=== PATIENT | female | born 1985 | race Caucasian/White ===

== ENCOUNTER 2024-11-27 12:39 | Emergency (ER) | payer BC, SELFPAY ==
[2024-11-27 12:40] VITALS: BP 157/91; PULSE 62; TEMP 36.8; O2SAT 100; BMI 21.5
[2024-11-27 12:49] VITALS: O2SAT 100
--- NOTE | 2024-11-27 12:53 | ED_ITS ---
HPI HPI - General Adult General Chief complaint: Neck Pain/Injury Stated complaint: NECK PAIN Time Seen by Provider: 11/27/24 12:43 Mode of arrival: walk-in History of Present Illness HPI narrative: 39-year-old female presents for pain and swelling on the right side of her neck. She has been having this issue on and off for the past year and has seen her family doctor about it. She reports that she had an ultrasound of her thyroid and it was fine. She was told by him to go to the emergency department if it happened again. She has had at this time for 3 days. No difficulty breathing or swelling. She is a smoker and she reports that she has lost a great deal of weight recently. Related Data Allergies Allergy/AdvReac Type Severity Reaction Status Date / Time latex Allergy Severe Rash Verified 11/27/24 12:45 topiramate (From Topamax) Allergy Severe Hallucinati Verified 11/27/24 12:45 ng Opioid HPI Opioid Management Most Recent Opioid Data: Last Pain Scale 6 Today, 12:47 Review of Systems ROS Narrative A ten point review of systems is negative except as noted above. PFSH PFSH Social History Little interest or pleasure in doing things: not at all Feeling down, depressed, or hopeless: not at all Exam Narrative Exam Narrative: Nurses note and vital signs reviewed and patient is not hypoxic. General: The patient appears well and in no apparent distress. Patient is resting comfortably on cart. Skin: Warm, dry, no pallor noted. There is no rash noted. Head: Normocephalic, atraumatic; I do not appreciate any palpable masses in her neck. There is no bruising rash or erythema. Eye: Normal conjunctiva, no drainage Ears, Nose, Mouth, and Throat: oral mucosa is moist. Nares patent. No pharyngeal erythema or exudate. Uvula midline. No swelling Cardiovascular: Regular Rate and Rhythm Respiratory: Patient is in no distress, no accessory muscle use, lungs are clear to auscultation, no wheezing, rales or rhonchi Back: non-tender GI: Soft and nontender Musculoskeletal: The patient has no evidence of calf tenderness, no pitting edema, symmetrical pulses noted bilaterally Neurological: A&O, normal speech Psychiatric: Cooperative Constitutional Vital Signs, click to edit/add: Last Vital Signs Temp 98.2 F 11/27/24 12:40 Pulse 62 11/27/24 12:40 Resp 18 11/27/24 12:40 BP 157/91 H 11/27/24 12:40 Pulse Ox 100 11/27/24 12:49 O2 Del Method Room Air 11/27/24 12:49 Course Vital Signs Vital signs: Vital Signs Temperature 98.2 F 11/27/24 12:40 Pulse Rate 62 11/27/24 12:40 Respiratory Rate 18 11/27/24 12:40 Blood Pressure 157/91 H 11/27/24 12:40 Pulse Oximetry 100 11/27/24 12:40 Oxygen Delivery Method Room Air 11/27/24 12:40 Temperature 98.2 F 11/27/24 12:40 Pulse Rate 62 11/27/24 12:40 Respiratory Rate 18 11/27/24 12:40 Blood Pressure 157/91 H 11/27/24 12:40 Pulse Oximetry 100 11/27/24 12:49 Oxygen Delivery Method Room Air 11/27/24 12:49 Medical Decision Making MDM Narrative Medical decision making narrative: Blood work and CT of neck are negative. She is discharged home and will follow- up with her family doctor. The possibility that this is a lymph node was discussed with the patient. No pathology is noted on the CT scan. Treatment diagnosis and follow-up were discussed with the patient. Differential Diagnosis Differential Diagnosis: Lymphadenopathy, neck mass, carcinoma Lab Data Lab results reviewed: Yes I reviewed the patient's lab results Labs: Lab Results 11/27/24 Range/Units 12:59 WBC 8.9 (4.0-11.0) 10^3/uL RBC 4.86 (4.20-5.40) 10^6/uL Hgb 14.1 (12.0-16.0) g/dL Hct 42.9 (36.0-48.0) % MCV 88.3 (81.0-99.0) fL MCH 29.0 (26.7-34.0) pg MCHC 32.9 (29.9-35.2) g/dL RDW 13.2 (11.0-15.0) % Plt Count 191 (150-450) 10^3/uL MPV 12.9 (9.5-13.5) fL Neut % (Auto) 73.3 (43.0-75.0) % Lymph % (Auto) 19.0 L (20.5-60.0) % [place] % (Auto) 4.9 (1.7-12.0) % Eos % (Auto) 2.0 (0.9-7.0) % Baso % (Auto) 0.6 (0.2-2.0) % Neut # (Auto) 6.5 (1.4-6.5) 10^3/uL Lymph # (Auto) 1.7 (1.2-3.8) 10^3/uL [place] # (Auto) 0.4 (0.3-0.8) 10^3/uL Eos # (Auto) 0.2 (0.0-0.7) 10^3/uL Baso # (Auto) 0.1 (0.0-0.1) 10^3/uL Abs Immat Gran (auto) 0.02 (0.00-0.03) 10^3/uL Imm/Tot Granulo (auto) 0.2 (0.0-0.5) % Sodium 141 (136-145) mmol/L Potassium 3.4 L (3.5-5.1) mmol/L Chloride 103 (98-107) mmol/L Carbon Dioxide 29.8 (21.0-32.0) mmol/L Anion Gap 11.6 BUN 6.0 L (7.0-18.0) mg/dL Creatinine 0.70 (0.55-1.02) mg/dL Est GFR ( Amer) >60 (>=60 mL/min/1.73m^2) Est GFR (Non-Af Amer) >60 (>=60 mL/min/1.73m^2) BUN/Creatinine Ratio 8.6 Glucose 112 H (74-106) mg/dL Calcium 9.0 (8.5-10.1) mg/dL Imaging Data CT neck: Radiologist's impression: No acute neck pathology Discharge Plan Discharge Chief Complaint: Neck Pain/Injury Clinical Impression: Neck pain Patient Disposition: Home, Self-Care Time of Disposition Decision: 15:05 Condition: Good Mode of Transportation: Private Vehicle Print Language: Filipino Instructions: Acute Neck Pain (ED) Referrals: DHARMESH FLOREZ [Primary Care Provider, Family Practice] - 1 week
[2024-11-27 13:07] LABS: Basophils Absolute Auto 0.1 10^3/uL (0.0-0.1); Basophils Percent Auto 0.6 % (0.2-2.0); Eosinophils Absolute Auto 0.2 10^3/uL (0.0-0.7); Hematocrit 42.9 % (36.0-48.0); Hemoglobin 14.1 g/dL (12.0-16.0); Immature Granulocytes Abs Auto 0.02 10^3/uL (0.00-0.03); Immature Granulocytes Pct Auto 0.2 % (0.0-0.5); Lymphocytes Absolute Auto 1.7 10^3/uL (1.2-3.8); Mean Corpuscular HGB Conc 32.9 g/dL (29.9-35.2); Mean Corpuscular Volume 88.3 fL (81.0-99.0); Mean Platelet Volume 12.9 fL (9.5-13.5); Monocytes Absolute Auto 0.4 10^3/uL (0.3-0.8); Monocytes Percent Auto 4.9 % (1.7-12.0); Neutrophils Absolute Auto 6.5 10^3/uL (1.4-6.5); Neutrophils Percent Auto 73.3 % (43.0-75.0); Platelet Count 191 10^3/uL (150-450); Red Blood Count 4.86 10^6/uL (4.20-5.40); Red Cell Distribution Width 13.2 % (11.0-15.0); White Blood Count 8.9 10^3/uL (4.0-11.0)
[2024-11-27 13:17] LABS: Anion Gap 11.6; BUN Creatinine Ratio 8.6; Carbon Dioxide 29.8 mmol/L (21.0-32.0); Chloride 103 mmol/L (98-107); Estimated GFR (African America >60 (>=60 mL/min/1.73m^2); Estimated GFR (Non-African Ame >60 (>=60 mL/min/1.73m^2); Glucose 112 mg/dL (74-106); Potassium 3.4 mmol/L (3.5-5.1); Sodium 141 mmol/L (136-145)
[2024-11-27 15:11] VITALS: BP 151/94; PULSE 59; O2SAT 100
== END 2024-11-27 15:11 | disposition home or self-care (01) ==
PROVIDERS: Emergency Provider Emergency Medicine; PCP Family Medicine
DX: M54.2 Cervicalgia (principal); R22.1 Localized swelling, mass and lump, neck
CPT/HCPCS: 36415; 70491; 80048; 85025; 99284; Q9967